=== PATIENT | male | born 1985 | race Two or more races ===

== ENCOUNTER 2018-12-16 12:30 | Emergency (ER) | payer OTHER ==
[2018-12-16] MEDS ORDERED: methylPREDNISolone Sodium Succinate 125 MG/2 ML SDV IM ONE (13:01)
[2018-12-16] MEDS ORDERED: Ondansetron 4 MG Tab.DIS PO ONE (13:01)
[2018-12-16] MEDS ORDERED: Ketorolac 60 MG/2 ML SDV IM ONE (13:01)
[2018-12-16] MEDS ORDERED: oxyCODONE 5 MG Tab PO ONE (13:03)
--- NOTE | 2018-12-16 13:15 | EDM.PDOC ---
ED HPI GENERAL MEDICAL PROBLEM - General Chief Complaint: Back Pain or Injury Stated Complaint: BACK PAIN Time Seen by Provider: 12/16/18 12:48 Source of Information: Reports: Patient History Limitations: Reports: No Limitations - History of Present Illness INITIAL COMMENTS - FREE TEXT/NARRATIVE: Patient comes to ER with complaint of right sided back pain/sciatica exacerbation. 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 At that time he underwent PT/acupuncture which helped and ultimately did not require surgery when herniated disc identified. Increasing pain noted over the past several weeks. No specific incident that he recalls initiating pain. Today very painful when he woke up. Cannot find a position of comfort. Repeatedly moves from lying to sitting to standing and back again. Pain radiates down to right heel. No weakness. No bowel/bladder dysfunction. No numbness. Denies other chronic medical problems. Is smoker. Treatments [employer]: Reports: Acetaminophen, NSAIDS Lower Back Pain Score (Numeric/FACES): 10 - Related Data Allergies Allergy/AdvReac Type Severity Reaction Status Date / Time No Known Allergies Allergy Verified 12/16/18 12:37 Home Meds: Home Meds Acetaminophen [Tylenol Extra Strength] 1,000 mg PO BID 12/16/18 [History] Ibuprofen [Motrin] 800 mg PO BIDM PRN 12/16/18 [History] Past Medical History Musculoskeletal History: Reports: Back Pain, Chronic (Herniated disc) Social & Family History - Tobacco Use Smoking Status *Q: Current Every Day Smoker Years of Tobacco use: 4 Packs/Tins Daily: 0.5 - Caffeine Use Caffeine Use: Reports: Energy Drinks - Alcohol Use Alcohol Use History: Yes - Recreational Drug Use Recreational Drug Use: No ED ROS GENERAL - Review of Systems Review Of Systems: ROS reveals no pertinent complaints other than HPI. ED EXAM, GENERAL - Physical Exam Exam: See Below Exam Limited By: No Limitations General Appearance: Alert, No Apparent Distress, Other (pacing floor) Eye Exam: Bilateral Eye: EOMI, PERRL Ears: Normal External Exam Nose: No: Nasal Deformity, Nasal Swelling, Nasal Drainage Throat/Mouth: Normal Lips, Normal Voice, No Airway Compromise Head: Atraumatic, Normocephalic Neck: Supple, Non-Tender Respiratory/Chest: No Respiratory Distress, Lungs Clear, Normal Breath Sounds, No Accessory Muscle Use, Chest Non-Tender Cardiovascular: Regular Rate, Rhythm, No Edema, No Murmur GI/Abdominal: Soft, Non-Tender, No Distention (Male) Exam: Deferred Rectal (Males) Exam: Deferred Back Exam: Decreased Range of Motion, Other (tenderness in area of right lumbar/ sacral region. + straight leg raise on right at 20 degrees. Left leg is negative. ) Extremities: Normal Capillary Refill Neurological: Alert, Oriented, Normal Cognition, No Motor/Sensory Deficits, Other (Able to ambulate well overall. Able to change positions from standing/ sitting/laying down well but did appear uncomfortable when trying to get up after laying flat on ER bed) Psychiatric: Normal Affect, Normal Mood Skin Exam: Warm, Dry, Intact, Normal Color Course - Vital Signs Last Recorded V/S: Last Vital Signs Temp 36.3 C 12/16/18 12:31 Pulse 102 H 12/16/18 12:31 Resp 20 12/16/18 12:31 BP 123/51 L 12/16/18 12:31 Pulse Ox 97 12/16/18 12:31 - Orders/Labs/Meds Meds: Medications Discontinued Medications Generic Name Dose Route Start Last Admin Trade Name Freq PRN Reason Stop Dose Admin Ketorolac Tromethamine 60 mg 12/16/18 13:01 Toradol IM 12/16/18 13:02 ONETIME ONE Methylprednisolone Sodium Succinate 125 mg 12/16/18 13:01 Solu-Medrol IM 12/16/18 13:02 ONETIME ONE Ondansetron HCl 4 mg 12/16/18 13:01 Zofran Odt PO 12/16/18 13:02 ONETIME ONE Oxycodone HCl 10 mg 12/16/18 13:03 Oxycodone PO 12/16/18 13:04 ONETIME ONE - Re-Assessments/Exams Free Text/Narrative Re-Assessment/Exam: 12/16/18 13:19 No acute imaging studies indicated. Well established problem over the last decade that has waxed and waned. Patient has been living and working in area with a work team for the last three months and will likely go home in 3 weeks where he can follow up. Plan for now is to give SoluMedrol IM/oral pain medication/Toradol IM. 10 tabs of Tramadol and Flexeril given to patient from ER weekend stock. He is to relax over the weekend and follow up Tuesday with Hospital clinic for recheck and further restrictions as needed. Precautions reviewed. To return to the ER if any limb weakness develops, or loss of bowel/bladder function is noted. Departure - Departure Time of Disposition: 13:30 Disposition: Home, Self-Care 01 Condition: Good Clinical Impression: Back pain with right-sided sciatica - Discharge Information *PRESCRIPTION DRUG MONITORING PROGRAM REVIEWED*: Not Applicable *COPY OF PRESCRIPTION DRUG MONITORING REPORT IN PATIENT [place]: Not Applicable Instructions: Sciatica, [id number], Chronic Back Pain, [id number] Additional Instructions: No additional pain meds for 6 hours. OK to take Tramadol with either Ibuprofen/Aleve or Tylenol. Gentle stretching/activity over weekend. Return to ER if you have loss of bowel/bladder control/numbness or increasingly incapacitating pain. Otherwise follow up Tuesday at clinic for recheck and additional meds if indicated. DO NOT drink alcohol while using Flexeril and Tramadol. Do not take more than recommended doses of medications.
== END 2018-12-16 13:36 | disposition home or self-care (01) ==
LOC: LL.ED 12:30
DX: M54.41 Lumbago with sciatica, right side (principal); F17.210 Nicotine dependence, cigarettes, uncomplicated; Z79.899 Other long term (current) drug therapy
CPT/HCPCS: 96372; 99283; A9270; J1885; J2930